=== PATIENT | female | born 1940 | race Caucasian/White ===

== ENCOUNTER 2016-08-17 22:59 | Inpatient (IN) | payer MEDICARE, MEDICAID ==
[2016-08-17] MEDS ORDERED: 0.9 % SODIUM CHLORIDE 1,000 ML BAG IV ONE (23:07)
--- NOTE | 2016-08-17 23:07 | Emergency Department Record ---
History of Present Illness - General Chief complaint: Vomiting Stated complaint: THROWING UP Time Seen by Provider: 08/17/16 23:00 Source: Patient, EMS Mode of Arrival: EMS Limitations: No limitations - History of Present Illness Initial comments: 76 yo female presents with nausea and vomiting that started at 2pm on Friday. Since that time she has not been able to keep down any oral intake. She states she is having daily bowel movements. No diarrhea. No blood in the stools. She denies any abdominal pain. She is bed bound but has very good 24 hour home care. She is followed by visiting physicians. The patient Friedreich's Ataxia diagnosed age 22. She was admitted a few years ago for a similar episode. MD complaint: Nausea, Vomiting - Related Data Home Medications Medication Instructions Recorded Confirmed Last Taken Alendronate Sodium 70 mg PO WEEKLY 08/17/16 08/17/16 Unknown Amlodipine Besylate [Norvasc] 10 mg PO DAILY 08/17/16 08/17/16 08/16/16 Simvastatin [Zocor] 20 mg PO QHS 08/17/16 08/17/16 08/16/16 Allergies Allergy/AdvReac Type Severity Reaction Status Date / Time No Known Drug Allergies Allergy Verified 08/17/16 23:01 Review of Systems Constitutional: Reports: Weakness. Denies: Chills, Fever Eyes: Denies: Eye discharge, Eye pain, Photophobia ENT: Denies: Congestion, Throat pain Respiratory: Denies: Cough, Dyspnea, Wheezes Cardiovascular: Denies: Chest pain, Palpitations, Syncope Endocrine: Reports: Fatigue Gastrointestinal: Reports: Nausea, Vomiting. Denies: Abdominal pain, Constipation, Diarrhea, Hematemesis, Hematochezia Genitourinary: Denies: Dysuria, Urgency Musculoskeletal: Denies: Arthralgia, Back pain, Myalgia, Neck pain Skin: Denies: Bruising, Change in color, Rash Neurological: Reports: Weakness. Denies: Headache, Numbness Psychiatric: Denies: Anxiety Hematological/Lymphatic: Denies: Anemia, Blood Clots, Easy bleeding, Easy bruising, Swollen glands Physical Exam - General General Appearance: Alert, Oriented x3, Cooperative, No acute distress, Other ( Thin frail patient) Limitations: No limitations - Head Head exam: Atraumatic, Normocephalic, Normal inspection - Eye Eye exam: Normal appearance, PERRL. negative: Conjunctival injection, Periorbital swelling - ENT ENT exam: Normal exam, Mucous membranes moist Ear exam: Normal external inspection Nasal Exam: Normal inspection Mouth exam: Normal external inspection Teeth exam: Normal inspection Throat exam: Normal inspection - Neck Neck exam: Normal inspection - Respiratory Respiratory exam: Normal lung sounds bilaterally. negative: Respiratory distress - GI/Abdominal GI/Abdominal exam: Soft, Normal bowel sounds. negative: Distended, Tenderness - Rectal Rectal exam: Deferred - exam: Deferred - Extremities Extremities exam: Normal capillary refill. negative: Joint swelling, Pedal edema, Tenderness - Back Back exam: Reports: Normal inspection, Full ROM. Denies: Muscle spasm, Rash noted, Tenderness - Neurological Neurological exam: Alert, Oriented X3. negative: Altered - Psychiatric Psychiatric exam: Normal affect, Normal mood - Skin Skin exam: Dry, Intact, Normal color, Warm Course - Reevaluation(s) Reevaluation #1: No prior visits in the EMR, Labs from [facility] on 07/26/16 demonstrated normal chemistry panel AND cbc. 08/17/16 23:05 Reevaluation #2: The grand-daughter provides similar history that the patient provides. 08/17/16 23:15 Reevaluation #3: Labs were reviewed to this point on the CBC the WBC was 14.2 on the CMP the BUN was 28 with HCO3 of 21 08/18/16 00:09 Reevaluation #4: The UA is positive for ketones and spec gravity of 1.030. some blood noted but this was a cath UA. No bacteria, N or LE. 08/18/16 00:33 08/18/16 00:51 Reevaluation #5: The patient's abdomen at this time is very soft and not tender She denies any abdominal pain She has mild nausea With her dehydration she will be admitted 08/18/16 00:38 Medical Decision Making - Lab Data Result diagrams: 08/17/16 23:11 08/17/16 23:11 Disposition Disposition: Admit Clinical Impression: Dehydration Vomiting Qualifiers: Vomiting type: unspecified Vomiting Intractability: intractable Nausea presence : with nausea Qualified Code(s): R11.2 - Nausea with vomiting, unspecified Decision to Admit: Admit from ER Decision to Admit Date: 08/18/16 Decision to Admit Time: 00:39 Time of Disposition: 00:39
[2016-08-17 23:16] LABS: BASO % 0.1 % (0-6); HEMATOCRIT 41.9 % (35.0-47.0); HEMOGLOBIN 13.5 gm/dl (11.6-16.0); LYMPH % 7.7 % (16-45); MEAN CELL VOLUME 88.8 fl (81-97); MEAN CORPUSCULAR HEMOGLOBIN 28.6 pg (27-33); MEAN CORPUSCULAR HGB CONC 32.2 g/dl (32-36); MEAN PLATELET VOLUME 11.1 fl (7.4-10.4); MONO % 4.7 % (0-9); PLATELET COUNT 281 K/uL (130-400); RED BLOOD COUNT 4.72 M/uL (3.80-5.40); RED CELL DISTRIBUTION WIDTH 13.1 % (11.5-14.5); WHITE BLOOD COUNT W/O DIFF 14.2 K/uL (4.2-12.2)
[2016-08-17 23:27] LABS: ALB/GLOB RATIO 1.3 (1.1-1.8); ALBUMIN 3.9 gm/dL (3.5-5.0); ALKALINE PHOSPHATASE 70 U/L (38-126); ALT/SGPT 25 U/L (9-52); ANION GAP 13.4 (7-16); AST/SGOT 21 U/L (14-36); BLOOD UREA NITROGEN 28 mg/dL (7-17); CARBON DIOXIDE 21.6 mmol/L (22-30); CREATININE 0.7 mg/dL (0.52-1.04); EST GLOMERULAR FILTRATION RATE > 60 ml/min; GLUCOSE,RANDOM 130 mg/dL (70-110); LIPASE 63 U/L (23-300); TOTAL PROTEIN 6.8 gm/dL (6.3-8.2)
[2016-08-18 00:26] LABS: URINE APPEARANCE CLEAR; URINE BILIRUBIN SMALL (NEGATIVE); URINE BLOOD LARGE (NEGATIVE); URINE COLOR YELLOW; URINE GLUCOSE (UA) NEGATIVE (NEGATIVE); URINE LEUKOCYTE ESTERASE NEGATIVE (NEGATIVE); URINE NITRITE NEGATIVE (NEGATIVE); URINE PROTEIN TRACE (NEGATIVE); URINE UROBILINOGEN 0.2 E.U./dL (0.20 - 1.00)
[2016-08-18 00:30] LABS: URINE KETONE 80 mg/dL (NEGATIVE)
[2016-08-18 00:45] LABS: URINE CALCIUM OXALATE CRYSTALS 4+ /hpf; URINE EPITHELIAL CELLS 16 - 20 (FEW); URINE MUCUS LIGHT; URINE RBC 21 - 35 (NONE SEEN)
[2016-08-18] MEDS ORDERED: ONDANSETRON HCL IV 4 MG/2 ML VIAL IVP PRN (00:54)
[2016-08-18] MEDS: 0.9 % SODIUM CHLORIDE 1000ML 1,000 ML IV PRN ×3 (00:55→10:09)
[2016-08-18 06:32] LABS: HEMATOCRIT 36.4 % (35.0-47.0); HEMOGLOBIN 11.6 gm/dl (11.6-16.0); MEAN CELL VOLUME 90.3 fl (81-97); MEAN CORPUSCULAR HEMOGLOBIN 28.8 pg (27-33); MEAN CORPUSCULAR HGB CONC 31.9 g/dl (32-36); MEAN PLATELET VOLUME 11.4 fl (7.4-10.4); PLATELET COUNT 236 K/uL (130-400); RED BLOOD COUNT 4.03 M/uL (3.80-5.40); RED CELL DISTRIBUTION WIDTH 13.1 % (11.5-14.5); WHITE BLOOD COUNT W/O DIFF 12.2 K/uL (4.2-12.2)
[2016-08-18 06:39] LABS: ALB/GLOB RATIO 1.2 (1.1-1.8); ALBUMIN 3.1 gm/dL (3.5-5.0); ALKALINE PHOSPHATASE 54 U/L (38-126); ALT/SGPT 23 U/L (9-52); ANION GAP 9.6 (7-16); AST/SGOT 20 U/L (14-36); BILIRUBIN,TOTAL 0.36 mg/dL (0.2-1.3); BLOOD UREA NITROGEN 23 mg/dL (7-17); CARBON DIOXIDE 20.4 mmol/L (22-30); CREATININE 0.5 mg/dL (0.52-1.04); EST GLOMERULAR FILTRATION RATE > 60 ml/min; GLUCOSE,RANDOM 101 mg/dL (70-110); TOTAL PROTEIN 5.7 gm/dL (6.3-8.2)
[2016-08-18] MEDS: PROMETHAZINE HCL 25 MG/ML VIAL IVP PRN ×2 (08:15→16:10)
--- NOTE | 2016-08-18 13:13 | History & Physical ---
History of Present Illness - Date of Service Date of Service for History & Physical: 08/18/16 - History of Present Illness Admitting Diagnosis: vomiting and dehydration History of Present Illness: 76 yo female admitted for dehydration. PMHx of Friedreich's Ataxia, high cholesterol, osteoporosis and htn. History obtained from patient and daughter. Patient A&Ox3. Patient presented to our ED by EMS after 24 hours of N/V, weakness. Since Friday afternoon, she was not able to keep any oral intake down. Upon presentation, VS relatively stable aside from HR of 116. WBC 14.2, H/H stable. plt 281, HCO3 21, BUN 28, Cr. 0.7, glucose 130. normal lipase. UA: large blood, negative leuks/nitrites, spec gravity 1.030 (straight cath). No imaging performed as patient w/o additional complaints. Patient started on IVFs and anti emetic therapy. Admitted for further medical management. 08/18/16: This morning, patient lying in bed, comfortably. She states she was nauseous this morning, however 12.5 mg of IV Phenergan relieved nausea. She denies any abdominal pain, fever, chills, vomiting, diarrhea, constipation, cough, pain w/ urination, sob, cp, MARCH, visual changes or dizziness. Denies recent illness. No hospitalization within the past 6 months. Patients ataxia has progressed and she now requires 24 hour/day care. Daughter is at patient's bedside and feels as if patient is nearly back to baseline. No recent travel or changes to medications. no cardiac history. denies abdominal surgeries. Admitted with similar symptoms about 3 years ago which was related to influenza. PCP: Visiting physician (see patient once a month). Travel Screening - Travel/Exposure Within Last 30 Days Have you traveled within the last 30 days?: No - Travel/Exposure Within Last Year Have you traveled outside the [place] in the last year?: No - Additonal Travel Details Have you been exposed to anyone with a communicable illness?: No - Travel Symptoms Symptom Screening: None Review of Systems Constitutional: Reports: Weakness. Denies: Chills, Fever Eyes: Denies: Eye discharge, Eye pain, Photophobia ENT: Denies: Congestion, Throat pain Respiratory: Denies: Cough, Dyspnea, Wheezes Cardiovascular: Denies: Chest pain, Palpitations, Syncope Endocrine: Reports: Fatigue Gastrointestinal: Denies: Abdominal pain, Constipation, Diarrhea, Hematemesis, Hematochezia, Nausea, Vomiting Genitourinary: Denies: Dysuria, Urgency Musculoskeletal: Denies: Arthralgia, Back pain, Myalgia, Neck pain Skin: Denies: Bruising, Change in color, Rash Neurological: Reports: Weakness. Denies: Headache, Numbness Psychiatric: Denies: Anxiety Hematological/Lymphatic: Denies: Anemia, Blood Clots, Easy bleeding, Easy bruising, Swollen glands Past Medical History - SOCIAL HISTORY Smoking Status: Never smoker Alcohol Use: Rare Drug Use: None - RESPIRATORY Hx Respiratory Disorders: No - CARDIOVASCULAR Hx Cardio Disorders: Yes Hx Hypertension: Yes - NEURO Hx Neuro Disorders: Yes Hx Speech Problem: Yes Comment:: Freidrich's ataxia - GI Hx GI Disorders: No - Hx Genitourinary Disorders: No - ENDOCRINE Hx Endocrine Disorders: No - MUSCULOSKELETAL Hx Musculoskeletal Disorders: No - PSYCH Hx Psych Problems: No - HEMATOLOGY/ONCOLOGY Hx Hematology/Oncology Disorders: Yes Hx Cancer: Yes (Uterine, Stage 4) Hx Chemotherapy: Yes Hx Radiation Therapy: Yes Family Medical History Any Significant Family History?: No Family Hx Comment (NOT TO BE USED IN PLACE OF ITEMS BELOW): denies H&P Meds/Allergies - Allergies Allergies: Allergies Allergy/AdvReac Type Severity Reaction Status Date / Time No Known Drug Allergies Allergy Verified 08/17/16 23:01 - Home Medications Home Medications Medication Instructions Recorded Confirmed Last Taken Alendronate Sodium 70 mg PO WEEKLY 08/17/16 08/17/16 Unknown Amlodipine Besylate [Norvasc] 10 mg PO DAILY 08/17/16 08/17/16 08/16/16 Simvastatin [Zocor] 20 mg PO QHS 08/17/16 08/17/16 08/16/16 - Active Medications Active Medications: Current Medications Sodium Chloride () 1,000 mls @ 125 mls/hr IV .Q8H PRN PRN Reason: LARGE VOLUME IV Last Admin: 08/18/16 10:09 Dose: 125 mls/hr Ondansetron HCl (Zofran) 4 mg IVP Q4H PRN PRN Reason: NAUSEA Last Admin: 08/18/16 05:18 Dose: 4 mg Promethazine HCl (Phenergan) 12.5 mg IVP Q4H PRN PRN Reason: NAUSEA Last Admin: 08/18/16 08:15 Dose: 12.5 mg Physical Exam - Vital Signs Vital Signs: Vital Signs - Last 24 Hrs Temp Pulse Pulse Resp BP BP Pulse Ox 08/18/16 05:15 98.7 F 99 H 18 104/67 96 08/18/16 00:59 98.2 F 112 H 18 106/72 93 L 08/18/16 00:54 98.9 F 112 H 20 114/75 93 L - General General Appearance: Alert, Oriented x3, Cooperative, No acute distress, Other ( Thin frail patient) Limitations: No limitations - Head Head exam: Atraumatic, Normocephalic, Normal inspection - Eye Eye exam: Normal appearance, PERRL. negative: Conjunctival injection, Periorbital swelling - ENT ENT exam: Normal exam, Mucous membranes moist Ear exam: Normal external inspection Nasal Exam: Normal inspection Mouth exam: Normal external inspection Teeth exam: Normal inspection Throat exam: Normal inspection - Neck Neck exam: Normal inspection - Respiratory Respiratory exam: Normal lung sounds bilaterally. negative: Respiratory distress - GI/Abdominal GI/Abdominal exam: Soft, Normal bowel sounds. negative: Distended, Tenderness - Rectal Rectal exam: Deferred - exam: Deferred - Extremities Extremities exam: Normal capillary refill. negative: Joint swelling, Pedal edema, Tenderness - Back Back exam: Reports: Normal inspection, Full ROM. Denies: Muscle spasm, Rash noted, Tenderness - Neurological Neurological exam: Alert, Oriented X3. negative: Altered - Psychiatric Psychiatric exam: Normal affect, Normal mood - Skin Skin exam: Dry, Intact, Normal color, Warm Results - Labs Result Diagrams: 08/18/16 05:10 08/18/16 05:10 Labs Last 24 Hours: Laboratory Results - last 24 hr 08/18/16 08/18/16 05:10 05:10 WBC 12.2 RBC 4.03 Hgb 11.6 Hct 36.4 MCV 90.3 MCH 28.8 MCHC 31.9 L RDW 13.1 Plt Count 236 MPV 11.4 H Neutrophils % 86.0 H Lymphocytes % 6.0 L Monocytes % 8.0 Eosinophils % Not Reportable Basophils % Not Reportable Sodium 139 Potassium 3.7 Chloride 109 H Carbon Dioxide 20.4 L Anion Gap 9.6 BUN 23 H Creatinine 0.5 L Estimated GFR > 60 Random Glucose 101 Calcium 7.9 L Total Bilirubin 0.36 AST 20 ALT 23 Alkaline Phosphatase 54 Total Protein 5.7 L Albumin 3.1 L Globulin 2.6 Albumin/Globulin Ratio 1.2 VTE H&P Assessment - Risk for VTE Risk for VTE: Yes Risk Level: Low Risk Assessment Date: 08/18/16 Risk Assessment Time: 11:00 VTE Orders Placed or Will Be Placed: Yes VTE Reason for No Prophylaxis: Not Indicated Plan - Inpatient Certification Inpatient Certification: Admit to inpatient care: Based on my medical assessment, after consideration of patient's risk factors (age, co-morbidities and patient presenting symptoms and acuity), I expect that this patient will remain in the hospital greater than or equal to two midnights and that the services needed warrant inpatient care because: Patient Risk Factors: [] Estimated length of stay: [] The patient may reasonably be expected to be discharged or transferred to a hospital within 96 hours after admission to [facility]. Services needed: [] Post hospital care (if known): [] I certify that my determination is in accordance with my understanding of Medicare requirements for reasonable and necessary inpatient services. - Detailed Diagnosis and Plan (1) Dehydration Current Visit: Yes Status: Acute Base Code: E86.0 - DEHYDRATION Comment: 08/18/16: N/V, specific gravity of 1.030. BUN 28. - anti emetic therapy - continue IVFs- adjust to 50 mls/hr - monitor for any signs of fluid overload (2) Nausea Current Visit: Yes Status: Acute Base Code: R11.0 - NAUSEA Comment: 08/18/16: resolved with 12. 5 mg of IV Phenergan this morning. Denies MARCH, vision changes, constipation, diarrhea or abdominal pain. - continue anti emetic therapy as needed - IVFs (3) DVT prophylaxis Current Visit: Yes Status: Acute Base Code: [id number] - Comment: 08/18/16: low risk. baseline mobility for patient. (4) DNR (do not resuscitate) Current Visit: Yes Status: Acute Base Code: Z66 - DO NOT RESUSCITATE Comment: 08/18/16: pt is DNR
[2016-08-18] MEDS ORDERED: 0.9 % SODIUM CHLORIDE 1000ML 1,000 ML IV PRN (13:19)
[2016-08-18] MEDS ORDERED: ZINC OXIDE 28.35 GM TUBE TOP PRN (17:18)
[2016-08-18] MEDS ORDERED: ACETAMINOPHEN 500 MG TABLET PO PRN (21:14)
[2016-08-19] MEDS ORDERED: CALCIUM CARBONATE 500 MG TAB.CHEW PO PRN (05:42)
--- NOTE | 2016-08-19 08:01 | Discharge Summary ---
Providers Discharge Summary Date: 08/19/16 Date of admission: 08/18/16 00:50 Expected Date of Discharge: 08/19/16 Attending physician: CAROLYN CHEN Physical Exam - Vital Signs Vital Signs: Vital Signs - Last 24 Hrs Temp Pulse Pulse Resp BP Pulse Ox 08/19/16 06:53 90 18 96 08/19/16 05:00 98.0 F 97 H 18 107/73 98 08/18/16 23:48 98.0 F 96 H 16 117/71 97 08/18/16 21:00 98.2 F 94 H 18 115/71 97 08/18/16 17:00 98.6 F 101 H 16 121/70 99 08/18/16 13:00 98.5 F 95 H 16 107/65 98 08/18/16 09:00 98.1 F 88 16 105/68 97 - General General Appearance: Alert, Oriented x3, Cooperative, No acute distress, Other ( Thin frail patient) Limitations: No limitations - Head Head exam: Atraumatic, Normocephalic, Normal inspection - Eye Eye exam: Normal appearance, PERRL. negative: Conjunctival injection, Periorbital swelling - ENT ENT exam: Normal exam, Mucous membranes moist Ear exam: Normal external inspection Nasal Exam: Normal inspection Mouth exam: Normal external inspection Teeth exam: Normal inspection Throat exam: Normal inspection - Neck Neck exam: Normal inspection - Respiratory Respiratory exam: Normal lung sounds bilaterally. negative: Respiratory distress - GI/Abdominal GI/Abdominal exam: Soft, Normal bowel sounds. negative: Distended, Tenderness - Rectal Rectal exam: Deferred - exam: Deferred - Extremities Extremities exam: Normal capillary refill. negative: Joint swelling, Pedal edema, Tenderness - Back Back exam: Reports: Normal inspection, Full ROM. Denies: Muscle spasm, Rash noted, Tenderness - Neurological Neurological exam: Alert, Oriented X3. negative: Altered - Psychiatric Psychiatric exam: Normal affect, Normal mood - Skin Skin exam: Dry, Intact, Normal color, Warm Hospitalization - Hospitalization Admission Diagnosis: vomiting and dehydration - Problem List/Discharge Diagnosis (1) Dehydration Current Visit: Yes Status: Acute Base Code: E86.0 - DEHYDRATION Comment: 08/19/16: N/V, specific gravity of 1.030. BUN improved. - anti emetic therapy prn (2) Nausea Current Visit: Yes Status: Acute Base Code: R11.0 - NAUSEA Comment: 08/19/16: resolved. - anti emetic therapy as needed. phenergan sent to pharmacy. (3) DNR (do not resuscitate) Current Visit: Yes Status: Acute Base Code: Z66 - DO NOT RESUSCITATE Comment: 08/19/16: pt remained DNR - Hospitalization Course Disposition: Home [facility] Service Hospital Course: 76 yo female admitted for dehydration. PMHx of Friedreich's Ataxia, high cholesterol, osteoporosis and htn. History obtained from patient and daughter. Patient A&Ox3. Patient presented to our ED by EMS after 24 hours of N/V, weakness. Since Friday afternoon, she was not able to keep any oral intake down. Upon presentation, VS relatively stable aside from HR of 116. WBC 14.2, H/H stable. plt 281, HCO3 21, BUN 28, Cr. 0.7, glucose 130. normal lipase. UA: large blood, negative leuks/nitrites, spec gravity 1.030 (straight cath). No imaging performed as patient w/o additional complaints. Patient started on IVFs and anti emetic therapy. Admitted for further medical management. 08/18/16: This morning, patient lying in bed, comfortably. She states she was nauseous this morning, however 12.5 mg of IV Phenergan relieved nausea. She denies any abdominal pain, fever, chills, vomiting, diarrhea, constipation, cough, pain w/ urination, sob, cp, MARCH, visual changes or dizziness. Denies recent illness. No hospitalization within the past 6 months. Patients ataxia has progressed and she now requires 24 hour/day care. Daughter is at patient's bedside and feels as if patient is nearly back to baseline. No recent travel or changes to medications. no cardiac history. denies abdominal surgeries. Admitted with similar symptoms about 3 years ago which was related to influenza. PCP: Visiting physician (see patient once a month). 08/19/16: patient lying in bed comfortable. she states she doesn't typically eat breakfast, however had a jello and juice this morning. She admits to fatigue. no n/v, abd pain, fever, chills, pain w/ urination, cough, sob, or cp. She's requesting d/c today stating she's back to baseline. Abnormal Labs: Abnormal Lab Results 08/18/16 08/18/16 Range/Units 05:10 05:10 MCHC 31.9 L (32-36) g/dl MPV 11.4 H (7.4-10.4) fl Neutrophils % 86.0 H (47-80) % Lymphocytes % 6.0 L (16-45) % Chloride 109 H (98-107) mmol/L Carbon Dioxide 20.4 L (22-30) mmol/L BUN 23 H (7-17) mg/dL Creatinine 0.5 L (0.52-1.04) mg/dL Calcium 7.9 L (8.5-10.1) mg/dL Total Protein 5.7 L (6.3-8.2) gm/dL Albumin 3.1 L (3.5-5.0) gm/dL Condition at Discharge: (2) Stable Discharge Medications - Discharge Medications Prescriptions: Promethazine HCl [Phenergan] 12.5 mg PO TID PRN #15 tablet PRN Reason: Nausea Home Medications: Ambulatory Orders Alendronate Sodium 70 mg PO WEEKLY 08/17/16 [Last Taken Unknown] Amlodipine Besylate [Norvasc] 10 mg PO DAILY 08/17/16 [Last Taken 08/16/16] Simvastatin [Zocor] 20 mg PO QHS 08/17/16 [Last Taken 08/16/16] Promethazine HCl [Phenergan] 12.5 mg PO TID PRN #15 tablet 08/19/16 [Last Taken Unknown] Discharge Plan - Discharge Instructions Activity at Discharge: Increase Activity as Tolerated Diet at Discharge: Regular Diet Additional Instructions: Phenergan as needed for any nausea. This was sent to pharmacy. Increase fluids. monitor for any N/V, abdominal pain, fever or chills. Follow with primary provider within 3-5 days of discharge. Return to the ED re any new or worsening symptoms.
== END 2016-08-19 12:00 | disposition home health service (06) | DRG 641 ==
LOC: ER 22:59 → MEDSURG 08-18 00:50
PROVIDERS: ADMIT Family Medicine; ATTEND Family Medicine
DX: E86.0 Dehydration (principal); G11.1 Early-onset cerebellar ataxia; E78.00 Pure hypercholesterolemia, unspecified; I10 Essential (primary) hypertension; M81.0 Age-related osteoporosis without current pathological fracture; Z85.42 Personal history of malignant neoplasm of other parts of uterus; Z66 Do not resuscitate
CPT/HCPCS: 80053; 81001; 83690; 85027; 94761; 96360; 96361; 99223; 99239; 99285; J2405; J2550; J7030